=== PATIENT | male | born 1980 | race Caucasian/White ===

== ENCOUNTER 2017-01-12 23:29 | Emergency (ER) | payer OTHER ==
[~2017-01-12] VITALS: Ht 175.3 cm; Wt 75.0 kg
[2017-01-13] MEDS ORDERED: TETRACAINE 0.5% OPHTH SOLN 4ML OS ONE (00:45)
[2017-01-13] MEDS ORDERED: ERYTOIN8 OU (00:57)
[2017-01-13] MEDS ORDERED: ERYTHROMYCIN OPHTH OINT OS ONE (01:00)
[2017-01-13 01:13] VITALS: BP 132/79
== END 2017-01-13 01:14 | disposition home or self-care (01) ==
LOC: M ED 23:29
DX: T15.02XA Foreign body in cornea, left eye, initial encounter (principal); Y92.89 Other specified places as the place of occurrence of the external cause; Y93.89 Activity, other specified; Y99.9 Unspecified external cause status